=== PATIENT | female | born 2000 | race Caucasian/White ===

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

== ENCOUNTER 2019-06-17 18:06 | Emergency (ER) | payer OTHER ==
--- NOTE | 2019-06-17 19:43 | ER Document Report ---
HPI - HPI Patient complains to provider of: right ankle injury Time Seen by Provider: 06/17/19 19:27 Onset: This morning Onset/Duration: Gradual Quality of pain: Sharp Pain Level: 5 Context: Patient states that she jumped down 5 steps this morning and injured her right ankle. Patient states she initially did not have severe pain but gradually throughout the day she has had increased right ankle pain. Patient states that she is also had nausea and vomiting although she has had vomiting throughout her entire . Patient is currently 21 weeks . Patient denies any other injury aside from the ankle pain. Associated Symptoms: Nausea, Vomiting, Other - right ankle pain Exacerbated by: Standing, Movement, Walking Relieved by: Denies Similar symptoms previously: No Recently seen / treated by doctor: No - ROS ROS below otherwise negative: Yes Systems Reviewed and Negative: Yes All other systems reviewed and negative - NEURO Neurology: DENIES: Weakness - GASTROINTESTINAL Gastrointestinal: REPORTS: Nausea, Patient vomiting. DENIES: Abdominal Pain - MUSCULOSKELETAL Musculoskeletal: REPORTS: Extremity pain, Swelling - DERM Skin Color: Normal Skin Problems: None Past Medical History - General Information source: Patient - Social History Smoking Status: Never Smoker Frequency of alcohol use: None Drug Abuse: None Occupation: none Family History: Reviewed & Not Pertinent - Medical History Medical History: Negative Surgical Hx: Negative Vertical Provider Document - CONSTITUTIONAL Agree With Documented VS: No - pt not tachycardic Exam Limitations: No Limitations General Appearance: WD/WN, No Apparent Distress - INFECTION CONTROL TRAVEL OUTSIDE OF THE [place] IN LAST 30 DAYS: No - HEENT HEENT: Atraumatic, Normocephalic - NECK Neck: Normal Inspection - RESPIRATORY Respiratory: No Respiratory Distress - CARDIOVASCULAR Pulses: Normal: Dorsalis pedis - MUSCULOSKELETAL/EXTREMETIES Musculoskeletal/Extremeties: MAEW, Tender - right ankle tenderness over lateral malleolar area, Edema - 1+ edema to right lateral ankle - NEURO Level of Consciousness: Awake, Alert, Appropriate Motor/Sensory: No Motor Deficit - DERM Integumentary: Warm, Dry Course - Re-evaluation Re-evalutation: 06/17/19 19:38 Offered patient pain medication for her ankle pain, patient declined. Patient also complains of nausea. Patient was offered antiemetic medication, patient declines. 06/17/19 20:42 No acute fracture noted on x-ray. Will immobilize and encourage outpatient follow-up with orthopedics. Patient encouraged to take Tylenol as needed [id number] for pain relief. - Vital Signs Vital signs: Temp Pulse Resp BP Pulse Ox 98.0 F 138 H 108/80 100 06/17/19 18:13 06/17/19 18:13 06/17/19 18:13 06/17/19 18:13 - Diagnostic Test Radiology reviewed: Image reviewed, Reports reviewed Procedures - Immobilization Right Ankle Pre-Proc Neuro Vasc Exam: Normal Immobilizer type: Ankle stirrup Performed by: PCT Post-Proc Neuro Vasc Exam: Normal Alignment checked and good: Yes Discharge - Discharge Clinical Impression: Right ankle sprain Qualifiers: Encounter type: initial encounter Involved ligament of ankle: unspecified ligament Qualified Code(s): S93.401A - Sprain of unspecified ligament of right ankle, initial encounter Condition: Stable Disposition: HOME, SELF-CARE Instructions: Acetaminophen, Ankle Stirrup Splint ([facility]), Use of Crutches ([facility]), Ice & Elevation ([facility]), Sprained Ankle ([facility]) Additional Instructions: Return immediately for any new or worsening symptoms Followup with your primary care provider, call tomorrow to make a followup appointment Weightbearing as tolerated Take Tylenol [id number] as needed for pain relief Follow-up with orthopedics for any persistent pain or problems Referrals: [facility] [Provider Group] - Follow up as needed
[2019-06-17 19:46] VITALS: BP 102/55
--- NOTE | 2019-06-17 20:24 | RADIOLOGY REPORT (SQ) ---
EXAM DESCRIPTION: XR ANKLE 3 OR MORE VIEWS COMPLETED DATE/TME: 06/17/2019 19:37 CLINICAL HISTORY: 18 years, Female, r lat ankle pain, jumped down steps COMPARISON: None. NUMBER OF VIEWS: Three TECHNIQUE: Frontal, oblique, and lateral radiographs were obtained LIMITATIONS: None. FINDINGS: Visualized osseous structures are normal in appearance. Joint spaces are well-maintained. No acute fracture or dislocation is evident. IMPRESSION: No acute osseous anomaly. copyright 2010 [employer]- All Rights Reserved
== END 2019-06-17 21:15 | disposition home or self-care (01) ==
LOC: ER 18:06
DX: O9A.212 Injury, poisoning and certain other consequences of external causes complicating pregnancy, second trimester (principal); S93.401A Sprain of unspecified ligament of right ankle, initial encounter; X50.0XXA Overexertion from strenuous movement or load, initial encounter; Y93.39 Activity, other involving climbing, rappelling and jumping off; Y92.009 Unspecified place in unspecified non-institutional (private) residence as the place of occurrence of the external cause; O21.2 Late vomiting of pregnancy; Z3A.21 21 weeks gestation of pregnancy
CPT/HCPCS: 99283

== ENCOUNTER → 2020-10-07 | Outpatient (CLI) | payer OTHER ==
--- NOTE | 2020-10-07 15:48 | RADIOLOGY REPORT (SQ) ---
EXAM DESCRIPTION: U/S [id number] TRNABD 1GES W/ODOP IMAGES COMPLETED DATE/TIME: 10/07/2020 2:43 pm REASON FOR STUDY: ENCOUNTER FOR SUPERVISION OF OTHER NORMAL PREGNANCT, FIRST TRIMESTER Z34.81 ENCOU NTER FOR SUPRVSN OF NORMAL , FIRST TRIM COMPARISON: None. TECHNIQUE: Transabdominal static and realtime grayscale images acquired of the pelvis. Additional se lected spectral and color Doppler images recorded. All images stored on PACs. bHCG: Not available. CLINICAL DATES: 11 weeks, 0 days LIMITATIONS: None. FINDINGS: FETUS: Single Living intrauterine . ULTRASOUND EGA: 8 weeks, 4 days ULTRASOUND JOEY: 05/15/2021 EFW: Not applicable less than 20 weeks. CRL: 2.0 cm FHR: 178 beats per minute. SURVEY: Too early to assess. AMNIOTIC FLUID: Adequate amount. PLACENTA: Not yet developed due to early gestation. SUBCHORIONIC BLEED: No. SIZE OF BLEED: Not applicable. UTERUS: No masses. No anomalies. CERVICAL LENGTH: 2.8 cm Closed. RIGHT ADNEXA: Normal ovary with normal vascular flow. No adnexal free fluid. No adnexal masses. LEFT ADNEXA: Normal ovary with normal vascular flow. No adnexal free fluid. No adnexal masses. Incidental note is made of a probable corpus luteum cyst. FREE FLUID: None. OTHER: No other significant finding. IMPRESSION: LIVING INTRAUTERINE . EGA 8 weeks, 4 days Trimester of : First trimester - 0 to 13 weeks. TECHNICAL DOCUMENTATION: JOB ID: [id number] 2010 [employer]- All Rights Reserved Reading location - IP/workstation name: [email or web address]
== END ==
LOC: RAD 14:17
PROVIDERS: ATTEND Midwife
DX: Z34.81 Encounter for supervision of other normal pregnancy, first trimester (principal)
CPT/HCPCS: 76801